=== PATIENT | male | born 1980 | race Caucasian/White ===

== ENCOUNTER 2019-09-18 16:40 | Inpatient (IN) | payer OTHER ==
[~2019-09-18] VITALS: Ht 175.3 cm; Wt 154.2 kg
[2019-09-18] MEDS ORDERED: ACETAMINOPHEN 325MG TABLET ONE (17:20)
[2019-09-18] MEDS ORDERED: ACETAMINOPHEN 325MG TABLET PO STA (18:34)
[2019-09-18 19:06] LABS: HEMATOCRIT. 44.8 % (42.0-52.0); HEMOGLOBIN. 15.2 g/dL (14.0-18.0); MEAN CORPUSCULAR HEMOGLOBIN 30.1 pg (28.0-32.0); MEAN CORPUSCULAR VOLUME 88.6 fL (80.0-94.0); MEAN PLATELET VOLUME 9.8 fl (7.4-10.4); PLATELET 213 x1000/uL (130-400); RED BLOOD CELL COUNT 5.06 mill/uL (4.7-6.1); RED CELL DISTRIBUTION WIDTH 14.6 % (11.6-14.6)
[2019-09-18 19:12] LABS: CHLORIDE 101 mEq/L (98-107)
[2019-09-18 19:16] LABS: D-DIMER 0.44 mg/L FEU (<0.50); INR 1.1; PROTHROMBIN TIME 11.2 sec (9.6-11.0)
[2019-09-18 19:20] LABS: CREATINE KINASE 304 IU/L (39-308)
[2019-09-18 19:23] LABS: PLATELET ESTIMATE NORMAL
[2019-09-18] MEDS ORDERED: IPRATROPIUM/ALBUTEROL 0.5-3(2.5)MG/3ML NEB ORI PRN (20:15)
[2019-09-18] MEDS ORDERED: MAGNESIUM/ALUMINUM HYDROXIDE/SIMETHICONE 30ML UDC PO PRN (20:15)
[2019-09-18] MEDS ORDERED: LORAZEPAM 0.5MG TABLET PO PRN (20:15)
[2019-09-18] MEDS ORDERED: ACETAMINOPHEN 325MG TABLET PO PRN ×2 (20:15)
[2019-09-18] MEDS ORDERED: GUAIFENESIN 200MG/10ML SUGAR FREE UDC PO PRN (20:15)
[2019-09-18] MEDS ORDERED: ONDANSETRON HCL 4MG/2ML INJ IV PRN (20:15)
[2019-09-18] MEDS ORDERED: CLONIDINE 0.1MG TABLET PO PRN (20:15)
[2019-09-18] MEDS ORDERED: ZOLPIDEM TARTRATE 5MG TABLET PO PRN (20:15)
[2019-09-18] MEDS ORDERED: DOCUSATE SODIUM 100MG CAPSULE PO PRN (20:15)
[2019-09-18] MEDS ORDERED: KETOROLAC 15MG/ML VIAL IV PRN (20:15)
[2019-09-18] MEDS ORDERED: NITROGLYCERIN 0.4MG TABLET SL SL PRN (20:15)
[2019-09-18] MEDS: ASCORBIC ACID 500 MG TABLET PO SCH (21:00)
[2019-09-18] MEDS ORDERED: ENOXAPARIN 40MG/0.4ML SYR SUBCUT SCH (21:00)
[2019-09-18] MEDS: GUAIFENESIN/DM 600MG/30MG ER TAB 12HR PO SCH (21:00)
[2019-09-18] MEDS ORDERED: CEFTRIAXONE 1 G PREMIX 50 ML IV SCH (21:00)
[2019-09-18] MEDS ORDERED: AZITHROMYCIN 500 MG in DEXT 5% WATER 250 ML IV SCH (21:00)
[2019-09-18] MEDS: FAMOTIDINE 20MG TABLET PO SCH (21:00)
[2019-09-18] MEDS: METHYLPREDNISOLONE SOD SUCC 125 MG/2 ML VIAL IV SCH (22:27)
[2019-09-19] VITALS (7 sets, daily range): BP systolic 112–144; BP diastolic 70–92
[2019-09-19 00:48] LABS: CREATINE KINASE 301 IU/L (39-308)
[2019-09-19 00:49] LABS: CREATINE KINASE MB FRACTION 1.4 ng/mL (0.5-3.6)
[2019-09-19 01:18] LABS: CLARITY URINE CLEAR (CLEAR); COLOR URINE YELLOW (YELLOW); KETONES URINE TRACE (NEGATIVE); LEUKOCYTE ESTERASE URINE NEGATIVE (NEGATIVE); NITRITE URINE NEGATIVE (NEGATIVE); OCCULT BLOOD URINE NEGATIVE (NEGATIVE); PH URINE 6.5 (4.5-8.0); PROTEIN URINE TRACE (NEGATIVE); SPECIFIC GRAVITY URINE 1.019 (1.005-1.030)
[2019-09-19 01:35] LABS: *AMPHETAMINES SCREEN URINE NEGATIVE (NEGATIVE); *BARBITURATES SCREEN URINE NEGATIVE (NEGATIVE); *BENZODIAZEPINES SCREEN URINE NEGATIVE (NEGATIVE); *COCAINE SCREEN URINE NEGATIVE (NEGATIVE); METHADONE URINE SCREEN NEGATIVE (NEGATIVE); OPIATES URINE SCREEN NEGATIVE (NEGATIVE)
[2019-09-19 01:36] LABS: CANNABINOID URINE SCREEN NEGATIVE (NEGATIVE); PHENCYCLIDINE URINE SCREEN NEGATIVE (NEGATIVE)
[2019-09-19] MEDS: METHYLPREDNISOLONE SOD SUCC 125 MG/2 ML VIAL IV SCH (05:51)
[2019-09-19] MEDS: GUAIFENESIN/DM 600MG/30MG ER TAB 12HR PO SCH ×2 (08:44→22:26)
[2019-09-19] MEDS: ASCORBIC ACID 500 MG TABLET PO SCH ×2 (08:44→22:26)
[2019-09-19] MEDS: ZINC SULFATE 220 MG ( 50 ) CAPSULE PO SCH (08:44)
[2019-09-19] MEDS: FAMOTIDINE 20MG TABLET PO SCH ×2 (08:44→22:26)
[2019-09-19 12:17] LABS: CREATINE KINASE 251 IU/L (39-308)
[2019-09-19 12:18] LABS: CREATINE KINASE MB FRACTION 1.7 ng/mL (0.5-3.6)
[2019-09-19] MEDS ORDERED: BENZONATATE 100MG CAPSULE PO PRN (12:45)
[2019-09-19] MEDS ORDERED: ALBUTEROL 6.7GM HFA INHALER ORI SCH (13:00)
[2019-09-19] MEDS: DEXAMETHASONE 2MG TABLET PO SCH (15:00)
[2019-09-19] MEDS: DEXAMETHASONE 4MG TABLET PO SCH (15:00)
[2019-09-19] MEDS: ENOXAPARIN 40MG/0.4ML SYR SUBCUT SCH (22:26)
[2019-09-19] MEDS ORDERED: AZITHROMYCIN 500 MG in DEXT 5% WATER 250 ML IV SCH (23:00)
[2019-09-19] MEDS ORDERED: CEFTRIAXONE 1 G PREMIX 50 ML IV SCH (23:00)
[2019-09-20] VITALS: BP 120/70
[2019-09-20 04:00] VITALS: BP 126/70
[2019-09-20 08:00] VITALS: BP 150/98
[2019-09-20] MEDS: FAMOTIDINE 20MG TABLET PO SCH (08:45)
[2019-09-20] MEDS: GUAIFENESIN/DM 600MG/30MG ER TAB 12HR PO SCH (08:45)
[2019-09-20] MEDS: DEXAMETHASONE 2MG TABLET PO SCH (08:45)
[2019-09-20] MEDS: ZINC SULFATE 220 MG ( 50 ) CAPSULE PO SCH (08:45)
[2019-09-20] MEDS: ENOXAPARIN 40MG/0.4ML SYR SUBCUT SCH (08:45)
[2019-09-20] MEDS: DEXAMETHASONE 4MG TABLET PO SCH (08:45)
[2019-09-20] MEDS: ASCORBIC ACID 500 MG TABLET PO SCH (08:46)
[2019-09-20] MEDS ORDERED: ENOXAPARIN 100MG/ML SYR SUBCUT SCH (12:00)
[2019-09-20 12:30] VITALS: BP 145/86
[2019-09-20] MEDS ORDERED: ENOXAPARIN 150MG/ML SYR SUBCUT SCH (21:00)
== END 2019-09-20 13:00 | disposition home or self-care (01) | DRG 871 ==
LOC: ER 16:40 → MICUSO 23:50 → 7WST 09-19 02:02
PROVIDERS: ADMIT Internal Medicine; ATTEND Internal Medicine
DX: A41.89 Other specified sepsis (principal); U07.1 COVID-19; J96.01 Acute respiratory failure with hypoxia; J12.89 Other viral pneumonia; E87.1 Hypo-osmolality and hyponatremia; R73.03 Prediabetes; D72.810 Lymphocytopenia
CPT/HCPCS: 36415; 71045; 80053; 80305; 81003; 82550; 82553; 82728; 82962; 83036; 83605; 83615; 83880; 84145; 84484; 85025; 85379; 85384; 86140; 93005; 93970; 96372; 99291; J0456; J0696; J1650; J2930; J7060; J8540; U0003-CS